=== PATIENT | male | born 1990 | race Hispanic/Latino ===

== ENCOUNTER 2023-10-26 09:31 | Emergency (ER) | payer SELFPAY ==
[2023-10-26 09:50] VITALS: BP 119/75; PULSE 60; RESP 18; TEMP 36.7; O2SAT 100
--- NOTE | 2023-10-26 10:05 | ED.DIZZY ---
HPI - Dizziness General Chief Complaint: Dizziness Stated Complaint: dizziness,neck pain,dry mouth Time Seen by Provider: 10/26/23 09:57 Mode of arrival: ambulatory Limitations: language barrier (translator and interpreter used) History of Present Illness HPI Narrative: 33 year old male presents with concern for several day history of dizziness, increased thirst, dry mouth, nausea, neck pain, and one episode of vomiting. He reports he had a tree branch fall on his head in March but did not seek care at that time. He reports he has not had pain or issues related to the tree branch since March. He denies new injury or trauma. He reports he works out in the heat doing [employer]ing. He reports certain movements make him feel dizzy. He denies thunderclap headache. He reports the headache is intermittent in nature and he has not taken any medication for the headache. He denies urine frequency, urgency, dysuria. He denies decreased urine output. MD elicited complaint: dizziness Related Data Allergies Allergy/AdvReac Type Severity Reaction Status Date / Time No Known Allergies Allergy Verified 10/26/23 10:00 Review of Systems Review of Systems: CONSTITUTIONAL: Denies malaise, chills, sweats, or fever. Reports increased thirst EYES: Denies visual changes, redness, or discharge. ENT: Denies rhinorrhea, congestion, sinus pain, otalgia or sore throat. reports dry mouth CARDIOVASCULAR: Denies chest pain, palpitations, or edema. RESPIRATORY: Denies cough or dyspnea. GASTROINTESTINAL: Denies abdominal pain, diarrhea, bloody, or mucous stools. Reports nausea and one episode vomiting GENITOURINARY: Denies dysuria or hematuria. SKIN: Denies rash or itching. MUSCULOSKELETAL: Denies back pain, joint pain, or myalgia. NEUROLOGIC: Denies numbness, weakness. Reports intermittent headache, dizziness. PSYCHIATRIC: Denies anxiety or depression. All systems reviewed & are unremarkable except as noted in HPI and below PMFSH Comments At time of signature, agree with nursing past medical, surgical, social and family history. There is no relevant family history pertinent to the presenting complaint Exam Narrative: GENERAL: Well-appearing, well-nourished, and in no acute distress. HEAD: Normocephalic, atraumatic. EYES: PERRLA, sclera clear, and EOMI. No nystagmus. ENT: Nares clear, turbinates pink, no rhinorrhea or epistaxis. Mucous membranes moist. TM pearly wong with sharp light reflex bilaterally; no tragal tenderness. Oropharynx without erythema or lesions. Tonsils not enlarged and without exudate. NECK: Supple. No lymphadenopathy. No jugular venous distension, thyromegaly, or carotid bruits. Carotids were easily palpable bilaterally. CHEST: No respiratory distress. Clear to auscultation. No bony deformities, no asymmetry. Speaks in full sentences. HEART: Regular rate and rhythm. No murmur heard. Normal peripheral pulses. ABDOMEN: Soft, nontender, nondistended, normal active bowel sounds, no palpable masses. EXTREMITIES: Normal range of motion. No edema. Normal strength and sensation. SKIN: Warm, dry, no visible rash. NEURO: Alert and oriented x3. No focal deficits. Cranial nerves II through XII grossly intact PSYCH: Normal mood and affect Course Course Emergency Course: Glucose normal, Strep test negative. This patient is here from [place] on a work visa, does not have a primary care provider and does not have medical insurance. I advised that his symptoms are not best evaluated at an urgent care in he should either follow-up with the primary care physician or go to the ER. Does not want to go to the ER at this time due to insurance reasons. Patient is aware of, understands and agrees to treatment plan. Anticipatory guidance given. Patient agrees to follow-up as directed and is aware of reasons to seek care at the emergency department. Portions of this record may have been created with voice recognition software Level of Care: [facility] Visit Vital S
[2023-10-26 10:13] LABS: Glucose Point of Care 79 mg/dl (65-105)
== END 2023-10-26 10:40 | disposition home or self-care (01) ==
PROVIDERS: Emergency Provider Nurse Practitioner
DX: H81.10 Benign paroxysmal vertigo, unspecified ear (principal)
CPT/HCPCS: 82948; 87081; 87880; 99203; G0463